=== PATIENT | female | born 1960 | race Two or more races ===

== ENCOUNTER 2019-04-27 12:58 | Emergency (ER) | payer OTHER ==
[~2019-04-27] VITALS: Ht 157.5 cm; Wt 72.6 kg
[2019-04-27] MEDS ORDERED: SIMVASTATIN5 MG PO (13:40)
== END 2019-04-27 18:19 | disposition home or self-care (01) ==
LOC: ER 12:58
DX: N13.39 Other hydronephrosis (principal)